=== PATIENT | female | born 1945 | race Caucasian/White ===

== ENCOUNTER → 2018-08-29 | Outpatient (CLI) | payer MEDICARE, OTHER ==
[~2018-08-29] MED LIST: ALBU90OI6 INH; ALBU90OI61 INH; ASPI81CH PO; Adult Low Dose81 MG PO; Amaryl1 MG PO; Bactrim Ds Tab1 EACH PO; Biotin1 MG; CALCAVITDA PO; CELE200 PO; CELECOXIB200 MG PO; CICL.77TC TOP; CLOBET30L TOP; DESO.05TCA TOP; ERGO400 PO; FISH OIL + D31 EACH; FISH1000 PO; FLONASE ALLERG9.9 ML; HAIR REGROWTH TOP; HAIR REGROWTH TP; HYDSUL200 PO; Hair, Skin & N1 EACH PO; KETO120T TOP; KETO15TC TOP; Keflex500 MG PO; LANS15EC PO; LOSARTAN POTAS100 MG PO; METF500 PO; METR70GEL VAG; Metformin HCl500 M1 PO; NIFE60ER PO; NIFEDICAL PO; Nifedical Xl60 MG PO; OXYACE5T PO; PROBIOTIC1 EAC3; Percocet 5-3251 EACH PO; QVAR7.3 G1 IH; RETIN A PO; Retin-A15 G1; SIMV10 PO; SULTRIDS PO; Simvastatin10 MG PO; VITAMIN D32000 UNI1 PO; XARELTO10 MG PO
[2018-09-02 11:06] LABS: VMA, RANDOM URINE 6.4 mg/L (Undefined); VMA/CRT, RANDOM U 4.8 (0.0-6.0)
[2018-09-03 15:07] LABS: METANEPH/CREAT RATIO 0.5 (0.0-1.0)
== END | disposition home or self-care (01) ==
LOC: LAB SHORT 10:05 → LAB 10:05
PROVIDERS: Otolaryngology
DX: N39.41 Urge incontinence (principal)
CPT/HCPCS: 82570; 83835; 84585

== ENCOUNTER → 2019-05-17 | Outpatient (CLI) | payer MEDICARE, OTHER ==
[2019-05-20 22:06] LABS: DOPAMINE, URINE 115 ug/L (Undefined)
[2019-05-21 08:08] LABS: METANEPHRINE, UR 66 ug/L (Undefined)
[2019-05-22 05:09] LABS: CREATININE, URINE 67.9 mg/dL (Not Estab.)
== END | disposition home or self-care (01) ==
LOC: LAB 05:54 → LAB SHORT 05:54 → LAB FUT 05-15 12:25 → EDSTATUS 05-15 12:25
PROVIDERS: Internal Medicine
DX: D44.7 Neoplasm of uncertain behavior of aortic body and other paraganglia (principal)
CPT/HCPCS: 81050; 82384; 82570; 83835; 84585

== ENCOUNTER → 2019-08-08 | Outpatient (CLI) | payer MEDICARE, OTHER ==
[2019-08-08 15:13] LABS: Source, Urine Clean Catch
[2019-08-08 17:05] LABS: Bilirubin, Urine Neg (Neg); Blood, Urine Neg (Neg); Glucose Qualitative, Urine Neg (Neg); Ketones, Urine Neg (Neg); Leukocyte Esterase, Urine 1+ (Neg); Nitrite, Urine Pos (Neg); Protein, Urine 1+ (Neg); Specific Gravity, Urine 1.025 (1.003-1.022); Urobilinogen, Urine NORM (Normal)
[2019-08-08 17:41] LABS: Appearance, Urine Clear (Clear); Color, Urine Yellow (P-Yellow)
[2019-08-08 17:42] LABS: Red Blood Cells, Urine 0-2 /hpf (0-2)
[2019-08-08 17:43] LABS: Amorphous Light (0-Heavy); Bacteria Many /hpf; Calcium Oxalate Crystals Few /hpf; Mucus Light (0-Heavy); Squamous Epithelial Cells Few /hpf (Few)
== END | disposition home or self-care (01) ==
LOC: LAB 15:12 → LAB SHORT 15:12
PROVIDERS: Internal Medicine
DX: R35.0 Frequency of micturition (principal)
CPT/HCPCS: 81001; 87077; 87086; 87186

== ENCOUNTER → 2019-08-20 | Outpatient (CLI) | payer MEDICARE, OTHER ==
[2019-08-20 13:55] LABS: Source, Urine Voided
[2019-08-20 16:04] LABS: Bilirubin, Urine Neg (Neg); Blood, Urine Neg (Neg); Glucose Qualitative, Urine Neg (Neg); Ketones, Urine Neg (Neg); Leukocyte Esterase, Urine 1+ (Neg); Nitrite, Urine Pos (Neg); Protein, Urine Neg (Neg); Specific Gravity, Urine 1.015 (1.003-1.022); Urobilinogen, Urine NORM (Normal)
[2019-08-20 16:31] LABS: Appearance, Urine Hazy (Clear); Color, Urine Yellow (P-Yellow)
[2019-08-20 16:33] LABS: Bacteria Many /hpf; Red Blood Cells, Urine 0-2 /hpf (0-2); Squamous Epithelial Cells Few /hpf (Few)
== END | disposition home or self-care (01) ==
LOC: LAB 12:34 → LAB SHORT 12:34 → LAB FUT 08-19 15:00
PROVIDERS: Internal Medicine
DX: R35.0 Frequency of micturition (principal)
CPT/HCPCS: 81001; 87077; 87086; 87186

== ENCOUNTER → 2019-09-02 | Outpatient (CLI) | payer MEDICARE, OTHER ==
[2019-09-02 12:58] LABS: Source, Urine Clean Catch
[2019-09-02 16:07] LABS: Bilirubin, Urine Neg (Neg); Blood, Urine Neg (Neg); Glucose Qualitative, Urine Neg (Neg); Ketones, Urine 1+ (Neg); Leukocyte Esterase, Urine 1+ (Neg); Nitrite, Urine Pos (Neg); Protein, Urine 1+ (Neg); Urobilinogen, Urine NORM (Normal)
[2019-09-02 16:35] LABS: Appearance, Urine Clear (Clear); Calcium Oxalate Crystals Few /hpf; Color, Urine Yellow (P-Yellow)
[2019-09-02 16:36] LABS: Bacteria Many /hpf; Red Blood Cells, Urine 0-2 /hpf (0-2); Squamous Epithelial Cells Few /hpf (Few)
== END | disposition home or self-care (01) ==
LOC: LAB SHORT 12:57 → LAB 12:57 → LAB FUT 08-23 18:25
PROVIDERS: Internal Medicine
DX: N39.0 Urinary tract infection, site not specified (principal)
CPT/HCPCS: 81001; 87077; 87086; 87186

== ENCOUNTER → 2019-09-19 | Outpatient (CLI) | payer MEDICARE, OTHER ==
[2019-09-19 13:29] LABS: Source, Urine Clean Catch
[2019-09-19 16:14] LABS: Appearance, Urine Clear (Clear); Bilirubin, Urine Neg (Neg); Blood, Urine Neg (Neg); Color, Urine Yellow (P-Yellow); Glucose Qualitative, Urine Neg (Neg); Ketones, Urine Neg (Neg); Leukocyte Esterase, Urine Neg (Neg); Nitrite, Urine Neg (Neg); Protein, Urine Neg (Neg); Urobilinogen, Urine NORM (Normal)
== END | disposition home or self-care (01) ==
LOC: LAB 13:28 → LAB SHORT 13:28 → LAB FUT 09-04 17:45
PROVIDERS: Internal Medicine
DX: N39.0 Urinary tract infection, site not specified (principal)
CPT/HCPCS: 81003

== ENCOUNTER 2020-03-05 10:41 | Emergency (ER) | payer MEDICARE, OTHER ==
[~2020-03-05] VITALS: Ht 152.4 cm; Wt 88.9 kg
[2020-03-05 11:46] LABS: Source, Urine Clean Catch
[2020-03-05 11:51] LABS: Bilirubin, Urine Neg (Neg); Blood, Urine Neg (Neg); Glucose Qualitative, Urine Neg (Neg); Ketones, Urine Neg (Neg); Leukocyte Esterase, Urine Neg (Neg); Nitrite, Urine Neg (Neg); Protein, Urine Neg (Neg); Urobilinogen, Urine NORM (Normal)
[2020-03-05 11:51] LABS: BASOPHILS ABSOLUTE AUTO 0.04 K/mm3 (0.00-0.23); BASOPHILS PERCENT AUTO 1 % (0-2); EOSINOPHILS ABSOLUTE AUTO 0.15 K/mm3 (0.00-0.68); EOSINOPHILS PERCENT AUTO 2 % (0-6); Hematocrit 43.9 % (33.0-51.0); Hemoglobin 13.9 g/dL (11.5-16.0); IMMATURE GRAN ABSOLUTE AUTO 0.02 K/mm3 (0.00-0.10); IMMATURE GRAN PERCENT AUTO 0 % (0-1); LYMPHOCYTES ABSOLUTE AUTO 1.36 K/mm3 (0.84-5.20); LYMPHOCYTES PERCENT AUTO 21 % (21-46); MONOCYTES ABSOLUTE AUTO 0.68 K/mm3 (0.16-1.47); MONOCYTES PERCENT AUTO 10 % (4-13); Mean Corpuscular HGB 29.4 pg (26.0-34.0); Mean Corpuscular HGB Conc 31.7 g/dL (31.5-36.5); Mean Corpuscular Volume 93 fL (80-100); Mean Platelet Volume 9.9 fL (9.1-12.4); NEUTROPHILS PERCENT AUTO 66 % (41-73); Platelet Count 241 K/mm3 (150-400); RDW Coefficient Variation 13.2 % (11.7-14.2); RDW Standard Deviation 45.3 fL (35.1-46.3); Red Blood Cell Count 4.73 M/mm3 (3.80-5.20); White Blood Cell Count 6.55 K/mm3 (4.00-11.30)
[2020-03-05] MEDS ORDERED: METF500 PO (11:53)
[2020-03-05] MEDS ORDERED: ALBU90OI INH (11:53)
[2020-03-05] MEDS ORDERED: Afeditab Cr60 MG PO (11:54)
[2020-03-05] MEDS ORDERED: ZOCOR20 MG PO (11:54)
[2020-03-05] MEDS ORDERED: TRIA15CR3 TOP (11:55)
[2020-03-05] MEDS ORDERED: LOSARTAN POTAS100 M1 PO (11:55)
[2020-03-05] MEDS ORDERED: ESTRADIOL42.5 GM (11:56)
[2020-03-05] MEDS ORDERED: QVAR REDIHALE10.6 G3 IH (11:56)
[2020-03-05 11:57] LABS: Appearance, Urine Clear (Clear); Color, Urine Yellow (P-Yellow)
[2020-03-05] MEDS ORDERED: HYDSUL200 PO (11:57)
[2020-03-05] MEDS ORDERED: CELE100 PO (11:57)
[2020-03-05] MEDS ORDERED: GABA300 PO (11:57)
[2020-03-05] MEDS ORDERED: Amaryl1 MG PO (11:57)
[2020-03-05 12:20] LABS: Alanine Aminotransfer (ALT/SGP 24 U/L (12-78); Albumin, Blood 3.9 g/dL (3.4-5.0); Albumin/Globulin Ratio 0.9 (0.8-1.8); Alk Phos 93 U/L (50-136); Anion Gap 6 mmol/L (6-16); Aspartate Aminotrans (AST/SGOT 24 U/L (12-37); Bilirubin, Total 0.5 mg/dL (0.1-1.0); Blood Urea Nitrogen 17 mg/dL (8-24); Bun/Creatinine Ratio 24.8 (12.0-20.0); CO2, Blood 26 mmol/L (21-32); Calcium, Blood 9.4 mg/dL (8.5-10.1); Chloride, Blood 109 mmol/L (98-108); Creatinine, Blood 0.69 mg/dL (0.40-1.00); Globulin, Blood 4.2 g/dL (2.2-4.0); Glomerular Filtration Rate >60 (60-); Glucose, Blood 98 mg/dL (70-99); Sodium, Blood 141 mmol/L (136-145); Total Protein, Blood 8.1 g/dL (6.4-8.2)
[2020-03-05] MEDS ORDERED: Robaxin-750750 MG PO (12:29)
[2020-03-05] MEDS ORDERED: IBUP600 PO (12:29)
== END 2020-03-05 12:45 | disposition home or self-care (01) ==
LOC: ER 10:41
PROVIDERS: Physician Assistant
DX: R10.9 Unspecified abdominal pain (principal); M54.5 Low back pain; Z88.0 Allergy status to penicillin; Z88.8 Allergy status to other drugs, medicaments and biological substances; Z79.899 Other long term (current) drug therapy; Z79.84 Long term (current) use of oral hypoglycemic drugs; Z79.82 Long term (current) use of aspirin; E11.9 Type 2 diabetes mellitus without complications; E78.00 Pure hypercholesterolemia, unspecified; I10 Essential (primary) hypertension; K21.9 Gastro-esophageal reflux disease without esophagitis; J44.9 Chronic obstructive pulmonary disease, unspecified
CPT/HCPCS: 36415; 76770; 80053; 81003; 83690; 85025; 96374; 99284-25; J1885

== ENCOUNTER 2020-04-20 07:13 | Day surgery (SDC) | payer MEDICARE, OTHER ==
[~2020-04-20 07:13] MED LIST changes: +ALBU90OI INH; +Afeditab Cr60 MG PO; +CELE100 PO; +ESTRADIOL42.5 GM; +GABA300 PO; +IBUP600 PO; +LOSARTAN POTAS100 M1 PO; +QVAR REDIHALE10.6 G3 IH; +Robaxin-750750 MG PO; +TRIA15CR3 TOP; +ZOCOR20 MG PO
== END 2020-04-20 22:49 | disposition home or self-care (01) ==
LOC: MOI US 07:13
DX: D24.2 Benign neoplasm of left breast (principal)
CPT/HCPCS: 19083; 77065; 88305; A4648

== ENCOUNTER 2020-05-01 09:00 | Day surgery (SDC) | payer MEDICARE, OTHER | END 2020-05-01 22:43 | disposition home or self-care (01) | LOC: MOI US 09:00 → MOI MAM 09:30 → MOI US 22:43 | DX: C50.912 Malignant neoplasm of unspecified site of left female breast (principal); Z17.0 Estrogen receptor positive status [ER+] | CPT/HCPCS: 19083; 77065; 88305; 88341; 88342; 88360; A4648; G0279 ==

== ENCOUNTER 2020-05-15 07:30 | Day surgery (SDC) | payer MEDICARE, OTHER ==
[~2020-05-15 07:30] MED LIST changes: -QVAR REDIHALE10.6 G3 IH; +QVAR REDIHALE10.6 G3 INH
[2020-05-18] MEDS ORDERED: Voltaren100 GM TOP (14:34)
== END 2020-05-15 12:00 | disposition home or self-care (01) ==
LOC: MOI US 07:30
DX: C50.212 Malignant neoplasm of upper-inner quadrant of left female breast (principal)
CPT/HCPCS: 19285

== ENCOUNTER → 2021-01-19 | Outpatient (CLI) | payer MEDICARE, OTHER ==
[~2021-01-19] MED LIST changes: +ARIMIDEX1 M2 PO; +FISH OIL 1,2001 EAC7; +IRBE150; +NIFE60ER; +Voltaren100 GM TOP
[2021-01-19 11:27] LABS: Source, Urine Clean Catch
[2021-01-19 13:32] LABS: Appearance, Urine Clear (Clear); Bilirubin, Urine Neg (Neg); Blood, Urine Neg (Neg); Color, Urine Yellow (P-Yellow); Glucose Qualitative, Urine Neg (Neg); Ketones, Urine Neg (Neg); Leukocyte Esterase, Urine 2+ (Neg); Nitrite, Urine Neg (Neg); Protein, Urine 1+ (Neg); Urobilinogen, Urine NORM (Normal)
[2021-01-19 14:53] LABS: Bacteria Many /hpf; Calcium Oxalate Crystals Mod /hpf; Red Blood Cells, Urine Not Seen /hpf (0-2); Squamous Epithelial Cells Few /hpf (Few)
== END | disposition home or self-care (01) ==
LOC: LAB 11:26 → LAB SHORT 11:26
PROVIDERS: Urology
DX: N39.41 Urge incontinence (principal); R39.15 Urgency of urination
CPT/HCPCS: 81001; 87086

== ENCOUNTER 2021-02-05 10:02 | Day surgery (SDC) | payer MEDICARE, OTHER ==
[~2021-02-05] VITALS: Ht 154.9 cm; Wt 84.1 kg
[~2021-02-05 10:02] MED LIST changes: -FISH OIL 1,2001 EAC7; -IRBE150; -NIFE60ER
[2021-02-05] MEDS ORDERED: IRBE150 (10:40)
[2021-02-05] MEDS ORDERED: NIFE60ER (10:40)
[2021-02-05] MEDS ORDERED: FISH OIL 1,2001 EAC7 (10:40)
== END 2021-02-05 11:50 | disposition home or self-care (01) ==
LOC: ORSCSDS 10:02
PROVIDERS: Internal Medicine Gastroenterology
PROC: 0DBL8ZX Excision of Transverse Colon, Via Natural or Artificial Opening Endoscopic, Diagnostic (ICD-10-PCS; principal; 2021-02-05 11:15)
PROC: 0DBC8ZX Excision of Ileocecal Valve, Via Natural or Artificial Opening Endoscopic, Diagnostic (ICD-10-PCS; principal; 2021-02-05 11:15)
PROC: 0DBK8ZX Excision of Ascending Colon, Via Natural or Artificial Opening Endoscopic, Diagnostic (ICD-10-PCS; principal; 2021-02-05 11:15)
DX: Z86.010 Personal history of colon polyps (principal); Z12.11 Encounter for screening for malignant neoplasm of colon; D12.0 Benign neoplasm of cecum; D12.2 Benign neoplasm of ascending colon; D12.3 Benign neoplasm of transverse colon; K57.30 Diverticulosis of large intestine without perforation or abscess without bleeding; I10 Essential (primary) hypertension; Z79.4 Long term (current) use of insulin; E11.9 Type 2 diabetes mellitus without complications; J44.9 Chronic obstructive pulmonary disease, unspecified; Z79.899 Other long term (current) drug therapy
CPT/HCPCS: 82947; 88305; J2704; J7120

== ENCOUNTER → 2021-02-18 | Outpatient (CLI) | payer MEDICARE, OTHER ==
[~2021-02-18] MED LIST changes: +FISH OIL 1,2001 EAC7; +IRBE150; +NIFE60ER
[2021-02-18 11:12] LABS: Source, Urine Clean Catch
[2021-02-18 13:25] LABS: Appearance, Urine Clear (Clear); Bilirubin, Urine Neg (Neg); Blood, Urine Neg (Neg); Color, Urine Yellow (P-Yellow); Glucose Qualitative, Urine Neg (Neg); Ketones, Urine Neg (Neg); Leukocyte Esterase, Urine 3+ (Neg); Nitrite, Urine Neg (Neg); Protein, Urine Neg (Neg); Urobilinogen, Urine NORM (Normal)
[2021-02-18 13:42] LABS: Bacteria Many /hpf; Red Blood Cells, Urine 0-2 /hpf (0-2); Squamous Epithelial Cells Mod /hpf (Few); White Blood Cells, Urine 25-50 /hpf (0-5)
== END | disposition home or self-care (01) ==
LOC: LAB SHORT 11:11 → LAB 11:11 → LAB FUT 02-18 10:20 → EDSTATUS 02-18 10:20
PROVIDERS: Physician Assistant
DX: N39.0 Urinary tract infection, site not specified (principal)
CPT/HCPCS: 81001; 87086

== ENCOUNTER → 2021-03-19 | Outpatient (CLI) | payer MEDICARE, OTHER ==
[2021-03-19 11:35] LABS: Source, Urine Clean Catch
[2021-03-19 13:28] LABS: Appearance, Urine Clear (Clear); Bilirubin, Urine Neg (Neg); Blood, Urine Neg (Neg); Color, Urine Yellow (P-Yellow); Glucose Qualitative, Urine Neg (Neg); Ketones, Urine Neg (Neg); Leukocyte Esterase, Urine 1+ (Neg); Nitrite, Urine Neg (Neg); Protein, Urine 1+ (Neg); Urobilinogen, Urine NORM (Normal)
[2021-03-19 14:20] LABS: Hyaline Casts 25-50 /lpf (0-2)
[2021-03-19 14:21] LABS: Bacteria Many /hpf; Mucus Light (0-Heavy); Red Blood Cells, Urine Not Seen /hpf (0-2); Squamous Epithelial Cells Few /hpf (Few)
== END ==
LOC: LAB SHORT 11:33 → LAB 11:33 → LAB FUT 02-17 10:20
PROVIDERS: Physician Assistant
DX: N39.0 Urinary tract infection, site not specified (principal)
CPT/HCPCS: 81001; 87086

== ENCOUNTER 2022-02-14 10:25 | Emergency (ER) | payer MEDICARE, OTHER ==
[~2022-02-14] VITALS: Ht 152.4 cm; Wt 63.5 kg
[2022-02-14 11:36] LABS: BASOPHILS ABSOLUTE AUTO 0.03 K/mm3 (0.00-0.23); BASOPHILS PERCENT AUTO 1 % (0-2); EOSINOPHILS ABSOLUTE AUTO 0.19 K/mm3 (0.00-0.68); EOSINOPHILS PERCENT AUTO 3 % (0-6); Hematocrit 39.1 % (33.0-51.0); Hemoglobin 12.7 g/dL (11.5-16.0); IMMATURE GRAN ABSOLUTE AUTO 0.01 K/mm3 (0.00-0.10); IMMATURE GRAN PERCENT AUTO 0 % (0-1); LYMPHOCYTES ABSOLUTE AUTO 1.03 K/mm3 (0.84-5.20); LYMPHOCYTES PERCENT AUTO 17 % (21-46); MONOCYTES PERCENT AUTO 8 % (4-13); Mean Corpuscular HGB 29.7 pg (26.0-34.0); Mean Corpuscular HGB Conc 32.5 g/dL (31.5-36.5); Mean Corpuscular Volume 91 fL (80-100); Mean Platelet Volume 9.5 fL (9.1-12.4); NEUTROPHILS ABSOLUTE AUTO 4.42 K/mm3 (1.96-9.15); NEUTROPHILS PERCENT AUTO 71 % (41-73); Platelet Count 249 K/mm3 (150-400); RDW Coefficient Variation 13.2 % (11.7-14.2); RDW Standard Deviation 43.7 fL (35.1-46.3); Red Blood Cell Count 4.28 M/mm3 (3.80-5.20); White Blood Cell Count 6.18 K/mm3 (4.00-11.30)
[2022-02-14 12:01] LABS: Albumin, Blood 3.4 g/dL (3.4-5.0); Albumin/Globulin Ratio 0.9 (0.8-1.8); Bilirubin, Total 0.4 mg/dL (0.1-1.0); Bun/Creatinine Ratio 32.7 (12.0-20.0); Creatinine, Blood 0.64 mg/dL (0.40-1.00); Globulin, Blood 3.8 g/dL (2.2-4.0); Potassium, Blood 4.1 mmol/L (3.5-5.5); Total Protein, Blood 7.2 g/dL (6.4-8.2)
[2022-02-14] MEDS ORDERED: HYDR1TAB94 PO (13:40)
== END 2022-02-14 13:52 | disposition home or self-care (01) ==
LOC: ER 10:25
PROVIDERS: Physician Assistant
DX: M54.2 Cervicalgia (principal); R51.9 Headache, unspecified; Z88.0 Allergy status to penicillin; Z88.1 Allergy status to other antibiotic agents; Z88.8 Allergy status to other drugs, medicaments and biological substances; Z79.899 Other long term (current) drug therapy; I10 Essential (primary) hypertension; E11.9 Type 2 diabetes mellitus without complications; J44.9 Chronic obstructive pulmonary disease, unspecified
CPT/HCPCS: 36415; 71046; 72040; 80053; 83690; 83880; 84484; 85025; J1170; J1885

== ENCOUNTER → 2023-08-08 | Outpatient (CLI) | payer MEDICARE, OTHER ==
[~2023-08-08] MED LIST changes: +HYDR1TAB94 PO
[2023-08-08 11:49] LABS: Source, Urine Clean Catch
[2023-08-08 12:57] LABS: Appearance, Urine Clear (Clear); Bilirubin, Urine Neg (Neg); Blood, Urine Neg (Neg); Color, Urine Yellow (P-Yellow); Glucose Qualitative, Urine Neg (Neg); Ketones, Urine Neg (Neg); Leukocyte Esterase, Urine Neg (Neg); Nitrite, Urine Neg (Neg); Protein, Urine Neg (Neg); Urobilinogen, Urine NORM (Normal)
== END | disposition home or self-care (01) ==
LOC: LAB 11:44 → LAB SHORT 11:44 → LAB FUT 06-14 12:50 → EDSTATUS 06-14 12:50
PROVIDERS: Physician Assistant
DX: C50.919 Malignant neoplasm of unspecified site of unspecified female breast (principal); N39.0 Urinary tract infection, site not specified
CPT/HCPCS: 81003; 87086

== ENCOUNTER → 2025-07-19 | Outpatient (CLI) | payer MEDICARE, OTHER | LOC: LAB 17:54 → LAB SHORT 17:54 | DX: N39.0 Urinary tract infection, site not specified (principal) | CPT/HCPCS: 87077; 87086; 87186 ==